=== PATIENT | male | born 1995 | race African-American/Black ===

== ENCOUNTER 2018-09-21 22:16 | Emergency (ER) | payer OTHER ==
--- NOTE | 2018-09-21 22:56 | RAD ---
AP CHEST: 09/21/18 HISTORY: Dyspnea. Lung knowles are clear. Heart and mediastinum appear normal. IMPRESSION: No acute process. POS: [facility]
== END 2018-09-21 23:22 ==
LOC: ERS 22:16
DX: R06.02 Shortness of breath (principal)
CPT/HCPCS: 71045; 93005